=== PATIENT | male | born 1970 | race American Indian/Alaskan Native ===

== ENCOUNTER 2016-06-14 09:53 | Emergency (ER) | payer BC ==
[2016-06-14 10:03] VITALS: BMI 27.2
[2016-06-14] MEDS ORDERED: cefTRIAXone IV 1 gm in Dextros 50 ML IVPB STA (10:28)
[2016-06-14 10:41] LABS: BASO # 0.1 K/uL (0.0-0.2); BASO % 0.5 % (0.0-2.0); EOS # 0.1 K/uL (0.0-0.7); EOS % 0.5 % (0.0-4.0); HEMATOCRIT 41.5 % (35.0-51.0); LYMPH # 1.4 K/uL (1.0-4.3); LYMPH % 10.3 % (20.0-40.0); MEAN CELL VOLUME 83.2 fL (80.0-94.0); MEAN CORPUSCULAR HEMOGLOBIN 27.9 pg (27.0-31.0); MEAN CORPUSCULAR HGB CONC 33.6 g/dL (33.0-37.0); MEAN PLATELET VOLUME 7.6 fL (7.2-11.7); MONO # 0.9 K/uL (0.0-0.8); NRBC % 0.3 % (0.0-2.0); RED CELL DISTRIBUTION WIDTH 13.5 % (11.5-14.5); WHITE BLOOD COUNT 13.1 K/uL (4.8-10.8)
[2016-06-14] MEDS ORDERED: Lidocaine 1% Inj (20ml) ONE (10:42)
--- NOTE | 2016-06-14 10:47 | C.PDOC ---
History Of Present Illness 45 yr old male presents to the ER for evaluation of swelling to the lower lip, ongoing for the past few days. Patient reports he was put on Augmentin by his PMD 2-3 days ago but the swelling has not subsided. Patient denies fever, chill , chest pain, SOB, nausea, vomiting, neck pain, weakness or numbness. PMD: Dr. Rajan Thompson Time Seen by Provider: 06/14/16 10:05 Chief Complaint (Nursing): Abnormal Skin Integrity History Per: Patient History/Exam Limitations: no limitations Onset/Duration Of Symptoms: Days (Few) Current Symptoms Are (Timing): Still Present Past Medical History Reviewed: Historical Data, Nursing Documentation, Vital Signs Vital Signs: Last Vital Signs Temp 98.5 F 06/14/16 10:05 Pulse 97 H 06/14/16 10:05 Resp 18 06/14/16 10:05 BP 130/78 06/14/16 10:05 Pulse Ox 98 06/14/16 11:33 Family History: States: No Known Family Hx - Social History Hx Alcohol Use: No Hx Substance Use: No - Immunization History Hx Tetanus Toxoid Vaccination: Yes Hx Influenza Vaccination: Yes Hx Pneumococcal Vaccination: Yes Review Of Systems Except As Marked, All Systems Reviewed And Found Negative. Constitutional: Negative for: Fever, Chills Cardiovascular: Negative for: Chest Pain Respiratory: Negative for: Shortness of Breath Gastrointestinal: Negative for: Nausea, Vomiting Musculoskeletal: Negative for: Neck Pain Skin: Positive for: Other (Lower lip swelling) Neurological: Negative for: Weakness, Numbness Physical Exam - Physical Exam Appears: Well, Non-toxic, No Acute Distress Skin: Normal Color, Warm, Dry, No Rash Head: Atraumatic, Normacephalic Oral Mucosa: Moist Lips: Swelling (Right lower lip) Throat: Normal, No Erythema, No Exudate, No Drooling Neck: Normal, Normal ROM, Supple Chest: Symmetrical, No Tenderness Cardiovascular: Rhythm Regular, No Murmur Respiratory: Normal Breath Sounds, No Rales, No Rhonchi, No Wheezing Extremity: Normal ROM, No Swelling Neurological/Psych: Oriented x3, Normal Speech, Normal Motor ED Course And Treatment - Laboratory Results Result Diagrams: 06/14/16 10:38 06/14/16 10:38 Lab Interpretation: No Acute Changes O2 Sat by Pulse Oximetry: 98 Pulse Ox Interpretation: Normal Progress Note: Treated with rocephin 1 gm IV Reassessment Condition: Improved - Incision & Drainage Of Abscess Anesthesia: Lidocaine 1% Prep Used: Sterile Water, Betadine Procedure: Incised W/Scalpel Blade#:, Drained Pus Medical Decision Making Medical Decision Making: PLAN: * CBC * Rocephine IVPB Disposition Counseled Patient/Family Regarding: Studies Performed, Diagnosis, Need For Followup - Disposition Disposition: HOME/ ROUTINE Disposition Time: 11:40 Condition: STABLE Instructions: Abscess (ED) - POA Present On Arrival: None - Clinical Impression Clinical Impression: Abscess, Cellulitis and abscess of face - PA / SIDEROGRAPHER / Resident Statement MD/DO has reviewed & agrees with the documentation as recorded. - Scribe Statement The provider has reviewed the documentation as recorded by the Scribe Ghazala Ortiz All medical record entries made by the Scribe were at my direction and personally dictated by me. I have reviewed the chart and agree that the record accurately reflects my personal performance of the history, physical exam, medical decision making, and the department course for this patient. I have also personally directed, reviewed, and agree with the discharge instructions and disposition.
[2016-06-14 10:50] LABS: CHLORIDE 102 mmol/L (98-107); SODIUM 140 mmol/L (132-148)
[2016-06-14 10:53] LABS: BLOOD UREA NITROGEN 15 mg/dL (9-20); CARBON DIOXIDE 26 mmol/L (22-30); GFR AFRICAN-AMERICAN > 60
[2016-06-14 10:54] LABS: CALCIUM 8.8 mg/dl (8.6-10.4); GLUCOSE,RANDOM 90 mg/dL (75-110)
[2016-06-14] MEDS ORDERED: cefTRIAXone IV 1 gm in Dextros 50 ML IVPB ONE (11:14)
[2016-06-14 11:52] VITALS: BP 123/82; PULSE 83; RESP 20; TEMP 98.3; O2SAT 99
== END 2016-06-14 11:52 | disposition home or self-care (01) ==
LOC: C.ER 09:53 → SUPCPDRO 09:53 → C.ER 11:52
DX: K13.0 Diseases of lips (principal)
CPT/HCPCS: 10060; 80048; 85025; 96374; 99285; J0696